=== PATIENT | female | born 1990 | race African-American/Black ===

== ENCOUNTER 2017-09-24 21:40 | Emergency (ER) | payer OTHER, SELFPAY ==
[2017-09-24] MEDS ORDERED: diphenhydrAMINE 25 MG CAP ONE (22:19)
[2017-09-24] MEDS ORDERED: Metoclopramide HCl 10 MG TAB ONE (22:19)
[2017-09-24] MEDS ORDERED: Ibuprofen 600 MG TAB ONE (22:19)
== END 2017-09-24 23:24 | disposition home or self-care (01) ==
LOC: MADERS 21:40
DX: G43.909 Migraine, unspecified, not intractable, without status migrainosus (principal); I10 Essential (primary) hypertension; E66.9 Obesity, unspecified
CPT/HCPCS: 99283